=== PATIENT | female | born 1980 | race African-American/Black ===

== ENCOUNTER 2016-04-17 08:10 | Inpatient (IN) | payer OTHER ==
[~2016-04-17] VITALS: Ht 165.1 cm; Wt 69.8 kg
[2016-04-17] VITALS (9 sets, daily range): BP systolic 108–136; BP diastolic 57–68
[~2016-04-17 08:10] MED LIST: LISI-538 PO; advil OR; prenatal OR
[2016-04-17 08:57] LABS: MEAN CORPUSCULAR HEMOGLOBIN 26.4 pg (27.0-33.0); MEAN CORPUSCULAR VOLUME 82.6 fl (80.0-96.0); RED CELL DISTRIBUTION WIDTH 15.4 % (11.5-14.5); WHITE BLOOD COUNT 7.6 K/mm3 (4.0-10.0)
[2016-04-17 09:10] LABS: CONTROL LINE HCG INT CTR LINE PRESENT
[2016-04-17] MEDS ORDERED: VASOPRESSIN INJ 20 UNITS/ML VIAL As Ordered ONE (12:59)
[2016-04-17] MEDS ORDERED: VASOPRESSIN INJ 20 UNITS/ML VIAL IM ONE (13:24)
[2016-04-17] MEDS ORDERED: MIDAZOLAM INJ 2 MG/2 ML VIAL (J2250) As Ordered ONE (13:53)
[2016-04-17] MEDS ORDERED: fentaNYL 250 MCG/5 ML INJECTION (J3010) As Ordered ONE (13:53)
[2016-04-17] MEDS ORDERED: HYDROmorphone HCL 2 MG/ML 1ML VIAL (J1170) As Ordered ONE (13:54)
[2016-04-17] MEDS: LR 1,000 ML IV SCH (15:06)
[2016-04-17] MEDS ORDERED: NS 1,000 ML IV SCH (15:06)
[2016-04-17] MEDS ORDERED: MORPHINE PCA 1MG/ML 100ML CADD IV PRN (15:15)
[2016-04-17] MEDS ORDERED: NALOXONE INJ 0.4 MG/1 ML VIAL (J2310) IV PRN (15:15)
[2016-04-17] MEDS ORDERED: PROMETHAZINE INJ 25 MG/ML VIAL (J2550) IV PRN (15:15)
[2016-04-17] MEDS ORDERED: diphenhydrAMINE INJ 50MG/ML VIAL (J1200) IV PRN (15:15)
[2016-04-17] MEDS ORDERED: NALBUPHINE HCL 10 MG/ML AMP (J2300) IV PRN (15:15)
[2016-04-17] MEDS ORDERED: ONDANSETRON 4MG/2ML VIAL (J2405) IV PRN ×3 (15:15→16:00)
[2016-04-17] MEDS ORDERED: EPIDURAL/PCA KEYS XX PRN (15:15)
[2016-04-17] MEDS ORDERED: LIDOCAINE 2% INJ 100 MG/5 ML SDV (FOR ANES.) As Ordered ONE (15:32)
[2016-04-17] MEDS ORDERED: PROPOFOL 200 MG/20 ML VIAL As Ordered ONE (15:32)
[2016-04-17] MEDS ORDERED: ONDANSETRON 4MG/2ML VIAL (J2405) As Ordered ONE (15:32)
[2016-04-17] MEDS ORDERED: ePHEDrine SULFATE 25 MG/5 ML(5MG/ML) SYRINGE As Ordered ONE (15:32)
[2016-04-17] MEDS ORDERED: ROCURONIUM BROMIDE 50 MG/5 ML VIAL As Ordered ONE (15:32)
[2016-04-17] MEDS ORDERED: GLYCOPYRROLATE INJ 0.2 MG/ML 2 ML VIAL As Ordered ONE (15:32)
[2016-04-17] MEDS ORDERED: KETOROLAC 60 MG/2 ML VIAL (J1885) As Ordered ONE (15:32)
[2016-04-17] MEDS ORDERED: NEOSTIGMINE 1MG/ML 5 ML SYRINGE (J2710) As Ordered ONE (15:32)
[2016-04-17] MEDS ORDERED: dexameTHASONE 4 MG/ML 1ML VIAL (J1100) As Ordered ONE (15:32)
[2016-04-17] MEDS: fentaNYL 100 MCG/2 ML INJECTION (J3010) IV PRN ×2 (15:50→15:58)
[2016-04-17] MEDS ORDERED: fentaNYL 100 MCG/2 ML INJECTION (J3010) As Ordered ONE (15:51)
[2016-04-17] MEDS ORDERED: PERCOCET 5MG/325MG TAB PO PRN (16:00)
[2016-04-17] MEDS ORDERED: LR 1,000 ML IV SCH (16:00)
[2016-04-17] MEDS ORDERED: HYDROmorphone HCL 1 MG/ML SYRINGE (J1170) IV PRN (16:00)
[2016-04-17] MEDS ORDERED: METOCLOPRAMIDE INJ 10MG/2ML VIAL (J2765) IV PRN (16:00)
[2016-04-17] MEDS: DOCUSATE SODIUM 100 MG CAP PO SCH (21:49)
--- NOTE | 2016-04-17 23:47 | RO ---
DATE OF PROCEDURE: 04/17/2016 PREOPERATIVE DIAGNOSIS: Symptomatic fibroid uterus. POSTOPERATIVE DIAGNOSIS: Symptomatic fibroid uterus. PROCEDURE PERFORMED: Abdominal myomectomy. SURGEON: Ashlee Etienne MD ENVIR[employer]MENT[employer] FIELD SERVICES TECHNICIAN: Bridgett Arce MD ANESTHESIA: General endotracheal. ESTIMATED BLOOD LOSS: 600 mL. IV FLUIDS: 3300 mL of lactated Ringer's. URINE OUTPUT: 400 mL. CONDITION: Stable. COMPLICATIONS: None. SPECIMEN: Uterine fibroid. ANTIBIOTICS: None indicated. INDICATIONS: The patient is a 35-year-old female with symptomatic fibroid uterus desiring surgical intervention. The patient desires future fertility and so she was counseled, consented and agreed to have an abdominal myomectomy. FINDINGS: Approximately 20 weeks size uterus with a large approximately 10 cm fundal fibroid. Other nondescript myomatous portions of her uterus was also noted diffusely. DESCRIPTION OF PROCEDURE: The risks, benefits, indications and alternatives to the procedure were reviewed with the patient and informed consent was obtained. The patient was taken to the operating room where general anesthesia was obtained without difficulty. The patient was then placed in the low lithotomy position using gel padded Elier stirrups. An exam under anesthesia was performed significant for a midline mobile 20 weeks sized anteverted uterus with no adnexal masses or fullness appreciated. She was then prepped and draped in a sterile fashion. A sterile speculum was placed in the patient's vagina and the cervix was visualized. Attention was then turned to the patient's abdomen where an 8 cm Pfannenstiel incision was made via scalpel and carried down to the underlying layer of fascia using electrocautery. Fascia was then incised in the midline and the fascial incision was extended superiorly and laterally using Jane scissors. The superior aspect of the fascial incision was then grasped with two Emelina clamps, elevated and the rectus muscles dissected off sharply. Attention was then turned to the inferior aspect of the fascial incision which in a similar fashion was grasped with Emelina clamps and elevated and the rectus muscles dissected off sharply. The rectus muscles were then in the midline, and the peritoneum was entered sharply using Metzenbaum scissors. The uterus was then exteriorized using a penetrating towel clamp and on palpation, there was a large fundal fibroid approximately 10 cm in addition to multiple other smaller fibroids diffusely throughout the rest of the uterus. Roughly 10 mL of Vasopressin which was 10 units diluted, 100 mL was injected into the subcutaneous tissue with subsequent tissue blanching. The serosa and overlying myometrium was cauterized until the fibroid tissue plane was apparent. Tissue attachments of leiomyoma were bluntly defined and cauterized, thereby freeing the fibroid from the surrounding myometrium. Using #0 Vicryl running suture at the base, the remaining pseudocapsule was closed. Multiple additional layers of #0 Vicryl was used to close the capsule using #0 Vicryl. The serosa was closed with a running baseball stitch of #2-0 Vicryl. All tissues were noted to be hemostatic. At this time, the uterus was then returned to the abdominal cavity. The abdomen was then cleared of all clots and debris. The excision and suture sites on the uterus were noted to be hemostatic. At that time, the fascia was then reapproximated with #0 Vicryl in a running fashion. The subcutaneous fat was then reapproximated using #2-0 Vicryl in a running fashion. The skin was closed using #4-0 Monocryl in a subcuticular fashion. Steri-Strips were applied to the incision site. Sponge, lap and needle counts were correct times two, and the patient was taken to the post-anesthesia care unit (PACU) in stable condition.
[2016-04-18 00:30] VITALS: BP 118/62
[2016-04-18] MEDS: IBUPROFEN 800 MG TAB PO SCH ×3 (00:49→15:57)
[2016-04-18] MEDS: LR 1,000 ML IV SCH (02:47)
[2016-04-18 04:00] VITALS: BP 109/52
[2016-04-18] MEDS ORDERED: PERCOCET 5MG/325MG TAB PO PRN (06:30)
[2016-04-18 08:00] VITALS: BP 106/52
[2016-04-18 08:08] LABS: EOS % 0.1 % (0.0-3.0); LARGE UNSTAINED CELL # 0.3 K/mm3 (0.0-0.4); LARGE UNSTAINED CELL % 2.2 % (0.0-4.0); LYMPH % 7.7 % (24.0-44.0); MEAN CORPUSCULAR HEMOGLOBIN 27.3 pg (27.0-33.0); MEAN CORPUSCULAR HGB CONC 32.8 g/dl (32.0-36.5); MEAN CORPUSCULAR VOLUME 83.3 fl (80.0-96.0); MONO # 0.5 K/mm3 (0.0-0.8); MONO % 4.1 % (0.0-5.0); NEUTROPHILS # 10.8 K/mm3 (1.8-7.7); NEUTROPHILS % 85.8 % (36.0-66.0); RED CELL DISTRIBUTION WIDTH 15.5 % (11.5-14.5); WHITE BLOOD COUNT 12.6 K/mm3 (4.0-10.0)
[2016-04-18 08:16] LABS: PLATELET COUNT, AUTOMATED 362 k/mm3 (150-450)
[2016-04-18] MEDS ORDERED: NS 1,000 ML IV SCH (08:22)
[2016-04-18] MEDS ORDERED: diphenhydrAMINE 25 MG CAP PO ONE (08:30)
[2016-04-18] MEDS: PERCOCET 5MG/325MG TAB PO PRN ×2 (08:35→17:29)
[2016-04-18] MEDS: DOCUSATE SODIUM 100 MG CAP PO SCH ×2 (08:36→20:17)
[2016-04-18 12:00] VITALS: BP 111/53
[2016-04-18 16:00] VITALS: BP 135/64
[2016-04-18 20:00] VITALS: BP 126/64
[2016-04-18 21:00] LABS: MEAN CORPUSCULAR HEMOGLOBIN 28.8 pg (27.0-33.0); MEAN CORPUSCULAR HGB CONC 33.3 g/dl (32.0-36.5); MEAN CORPUSCULAR VOLUME 86.4 fl (80.0-96.0); RED CELL DISTRIBUTION WIDTH 15.4 % (11.5-14.5); WHITE BLOOD COUNT 11.9 K/mm3 (4.0-10.0)
[2016-04-19] MEDS: IBUPROFEN 800 MG TAB PO SCH ×2 (00:15→08:33)
[2016-04-19] MEDS: PERCOCET 5MG/325MG TAB PO PRN (02:19)
[2016-04-19 04:00] VITALS: BP 119/71
[2016-04-19 08:00] VITALS: BP 131/74
[2016-04-19] MEDS: DOCUSATE SODIUM 100 MG CAP PO SCH (08:32)
[2016-04-19] MEDS ORDERED: COLA100C PO (10:39)
[2016-04-19] MEDS ORDERED: OXYC1TAB23 PO (10:39)
[2016-04-19] MEDS ORDERED: MOTR200T44 PO (10:39)
== END 2016-04-19 13:30 | disposition home or self-care (01) | DRG 743 ==
LOC: M OR 08:10 → M PED 16:47
PROVIDERS: ADMIT Obstetrics & Gynecology; ATTEND Obstetrics & Gynecology
PROC: 0UB90ZZ Excision of Uterus, Open Approach (ICD-10-PCS; principal; 2016-04-17 10:30)
PROC: 30233N1 Transfusion of Nonautologous Red Blood Cells into Peripheral Vein, Percutaneous Approach (ICD-10-PCS; 2016-04-18)
DX: D25.9 Leiomyoma of uterus, unspecified (principal); D64.9 Anemia, unspecified; I10 Essential (primary) hypertension; Z79.899 Other long term (current) drug therapy